=== PATIENT | female | born 1975 | race African-American/Black ===

== ENCOUNTER 2021-05-16 10:01 | Observation (INO) | payer OTHER ==
[~2021-05-16] VITALS: Ht 165.1 cm; Wt 155.1 kg
[2021-05-16] MEDS ORDERED: AMLODIPINE BESY10 MG PO (10:24)
[2021-05-16] MEDS ORDERED: TRIAMTERENE-HCTZ1 EA PO (10:24)
[2021-05-16] MEDS ORDERED: LOTREL 5-20 MG1 EACH (10:36)
[2021-05-16] MEDS ORDERED: CLONIDINE HCL 0.1 MG TAB PO ONE (11:00)
[2021-05-16] MEDS ORDERED: CLONIDINE HCL 0.1 MG TAB ONE (11:08)
[2021-05-16] MEDS ORDERED: SODIUM CHLORIDE 0.9% 1000ML 1,000 ML IV SCH (11:30)
[2021-05-16] MEDS ORDERED: SODIUM CHLORIDE 0.9% 1000ML 1,000 ML ONE (11:34)
[2021-05-16] MEDS ORDERED: SODIUM CHLORIDE 0.9% 50ML 50 ML ONE (11:40)
[2021-05-16] MEDS ORDERED: IOPAMIDOL 370 MG/ML 200 ML INFUS..BTL INJ ONE (11:40)
[2021-05-16] MEDS ORDERED: BENAZEPRIL HCL40 MG PO (14:27)
[2021-05-16] MEDS ORDERED: PROMETHAZINE HCL (IM) 25 MG/ML VIAL IM PRN (15:45)
[2021-05-16] MEDS ORDERED: ONDANSETRON HCL INJ 2MG/ML 2ML 2 MG/ML VIAL IV PRN (15:45)
[2021-05-16] MEDS ORDERED: SODIUM CHLORIDE FLUSH 10 ML SYR INJ PRN (15:45)
[2021-05-16] MEDS ORDERED: HYDRALAZINE HCL 20 MG/ML VIAL IV PRN (15:45)
[2021-05-16] MEDS ORDERED: ASPIRIN 81 MG CHEW TAB PO ONE (15:45)
[2021-05-16] MEDS ORDERED: NITROGLYCERIN 0.4 MG SUBL SL PRN (15:45)
[2021-05-16] MEDS ORDERED: PROMETHAZINE 12.5MG/ NACL 0.9% 50 ML IV PRN (16:15)
[2021-05-16 17:34] VITALS: BP 179/102
[2021-05-16 17:39] VITALS: BP 179/102
[2021-05-16] MEDS ORDERED: CLONIDINE HCL 0.1 MG TAB PO PRN (17:45)
[2021-05-16 18:34] VITALS: BP 179/102
[2021-05-16 18:34] LABS: CREATINE KINASE MB 5.2 ng/mL (0-5.0)
[2021-05-16 19:28] VITALS: BP 156/89
[2021-05-16 20:00] VITALS: BP 156/89
[2021-05-17] VITALS (8 sets, daily range): BP systolic 139–160; BP diastolic 79–98
[2021-05-17] MEDS: ACETAMINOPHEN 325 MG TAB PO PRN ×2 (05:03→11:13)
[2021-05-17 05:46] LABS: BASOPHILS % 0.7 % (0.0-1.0); EOSINOPHILS # (AUTO) 0.4 (0.0-0.4); HEMATOCRIT 45.2 % (34.2-44.1); LYMPHOCYTES # (AUTO) 1.4 (1.0-3.2); LYMPHOCYTES % 23.8 % (18.0-39.1); MEAN CORPUSCULAR HEMOGLOBIN 27.2 pg (28-32); MEAN CORPUSCULAR VOLUME 87.8 fL (81-99); MONOCYTES # (AUTO) 0.7 (0.2-0.8); MONOCYTES % 11.1 % (4.4-11.3); NEUTROPHILS # (AUTO) 3.5 (2.1-6.9); NEUTROPHILS % 58.1 % (38.7-80.0); PLATELET COUNT 260 x10e3/uL (140-360); RED BLOOD COUNT 5.15 x10e6/uL (3.6-5.1)
[2021-05-17 06:13] LABS: ANION GAP 11.9 mmol/L (8-16); CALCIUM 9.5 mg/dL (8.4-10.2); CHOL/HDL RATIO 4.9 (3.0-3.6); CREATININE, SERUM 1.57 mg/dL (0.57-1.11); POTASSIUM 3.9 mmol/L (3.5-5.1)
[2021-05-17 06:57] LABS: CREATINE KINASE MB 2.7 ng/mL (0-5.0)
[2021-05-17] MEDS: AMLODIPINE BESYLATE 5 MG TAB PO SCH (09:09)
[2021-05-17] MEDS: CLONIDINE HCL 0.1 MG TAB PO SCH ×2 (11:14→21:02)
[2021-05-17] MEDS: HYDRALAZINE HCL 25 MG TAB PO SCH ×2 (11:14→17:06)
[2021-05-17 15:02] LABS: CREATINE KINASE MB 2.6 ng/mL (0-5.0)
[2021-05-17] MEDS ORDERED: ATORVASTATIN 20 MG TAB PO SCH (21:00)
[2021-05-18 00:45] VITALS: BP 116/98
[2021-05-18 02:25] LABS: COLOR,URINE YELLOW (YELLOW); LEUKOCYTE ESTERASE ,URINE NEGATIVE (NEGATIVE); NITRITE,URINE NEGATIVE (NEGATIVE)
[2021-05-18 02:26] LABS: KETONES,URINE NEGATIVE (NEGATIVE); PROTEIN,URINE DIPSTICK >=300 (NEGATIVE); URINE UROBILINOGEN 0.2 mg/dL (0.2 - 1)
[2021-05-18 02:33] LABS: WBC,URINE (MAN) >50 /HPF (0-5)
[2021-05-18 02:34] LABS: BACTERIA,URINE FEW /HPF; CLARITY,URINE SL CLOUDY (CLEAR); EPITHELIAL CELLS,URINE MANY /LPF
[2021-05-18 02:38] LABS: TRANSITIONAL EPI CELLS,URINE FEW; TRICHOMONAS,URINE MANY
[2021-05-18 05:24] VITALS: BP 149/85
[2021-05-18 06:06] LABS: BASOPHILS % 0.5 % (0.0-1.0); EOSINOPHILS # (AUTO) 0.3 (0.0-0.4); EOSINOPHILS % 5.4 % (0.0-6.0); HEMATOCRIT 44.6 % (34.2-44.1); HEMOGLOBIN 14.1 g/dL (12.0-16.0); LYMPHOCYTES # (AUTO) 1.3 (1.0-3.2); LYMPHOCYTES % 22.4 % (18.0-39.1); MEAN CORPUSCULAR HEMOGLOBIN 27.5 pg (28-32); MEAN CORPUSCULAR HGB CONC 31.6 g/dL (31-35); MEAN CORPUSCULAR VOLUME 86.9 fL (81-99); MONOCYTES # (AUTO) 0.7 (0.2-0.8); MONOCYTES % 12.1 % (4.4-11.3); NEUTROPHILS # (AUTO) 3.5 (2.1-6.9); NEUTROPHILS % 58.6 % (38.7-80.0); PLATELET COUNT 250 x10e3/uL (140-360); RED BLOOD COUNT 5.13 x10e6/uL (3.6-5.1); RED CELL DISTRIBUTION WIDTH 16.8 % (11.7-14.4)
[2021-05-18 06:38] LABS: ALBUMIN 2.5 g/dL (3.5-5.0); ALBUMIN/GLOBULIN RATIO 0.6 (0.8-2.0); ANION GAP 11.7 mmol/L (8-16); CALCIUM 9.4 mg/dL (8.4-10.2); CREATININE, SERUM 1.5 mg/dL (0.57-1.11); POTASSIUM 3.7 mmol/L (3.5-5.1)
[2021-05-18 07:06] LABS: THYROID STIMULATING HORMONE 1.313 uIU/mL (0.350-4.940)
[2021-05-18 08:00] VITALS: BP 149/85
[2021-05-18 08:54] VITALS: BP 134/90
[2021-05-18] MEDS: HYDRALAZINE HCL 25 MG TAB PO SCH ×2 (09:24→17:02)
[2021-05-18] MEDS: CLONIDINE HCL 0.1 MG TAB PO SCH (09:24)
[2021-05-18] MEDS: AMLODIPINE BESYLATE 5 MG TAB PO SCH (09:25)
[2021-05-18 12:15] VITALS: BP 128/88
[2021-05-18] MEDS ORDERED: ONDANSETRON HCL 4 MG ORAL DISINTEGRATING TAB PO PRN (13:30)
[2021-05-18] MEDS ORDERED: LIPITOR20 MG PO (13:42)
[2021-05-18] MEDS ORDERED: HYDRALAZINE HCL25 MG PO (13:42)
[2021-05-18] MEDS ORDERED: CLONIDINE HCL0.1 MG PO (13:42)
[2021-05-18] MEDS ORDERED: NORVASC5 MG PO (13:42)
== END 2021-05-18 17:30 | disposition home or self-care (01) ==
LOC: FSED 10:32 → ERHOLD 15:43 → MED/SURG2 17:30
PROVIDERS: ADMIT Internal Medicine; ATTEND Internal Medicine
DX: I16.0 Hypertensive urgency (principal); I13.0 Hypertensive heart and chronic kidney disease with heart failure and stage 1 through stage 4 chronic kidney disease, or unspecified chronic kidney disease; I50.33 Acute on chronic diastolic (congestive) heart failure; R42 Dizziness and giddiness; G47.30 Sleep apnea, unspecified; N18.31 Chronic kidney disease, stage 3a; E66.01 Morbid (severe) obesity due to excess calories; R73.03 Prediabetes; Z68.43 Body mass index [BMI] 50.0-59.9, adult; R51.9 Headache, unspecified; E78.00 Pure hypercholesterolemia, unspecified; N17.9 Acute kidney failure, unspecified; M19.90 Unspecified osteoarthritis, unspecified site; F17.210 Nicotine dependence, cigarettes, uncomplicated; M47.26 Other spondylosis with radiculopathy, lumbar region; Z20.822 Contact with and (suspected) exposure to COVID-19
CPT/HCPCS: 36415 ×3; 70450; 71260; 80048; 80053 ×2; 80061; 81001; 81003; 82550 ×2; 82553 ×2; 83880; 84443; 84484 ×2; 85025 ×3; 85379; 93005; 93306; 93880; 99284; G0378 ×3; J7030; Q9967; U0002; J0360

== ENCOUNTER 2021-07-20 06:34 | Emergency (ER) | payer OTHER ==
[~2021-07-20] VITALS: Ht 165.1 cm; Wt 153.3 kg
[~2021-07-20 06:34] MED LIST: AMLODIPINE BESY10 MG PO; BENAZEPRIL HCL40 MG PO; CLONIDINE HCL0.1 MG PO; HYDRALAZINE HCL25 MG PO; LIPITOR20 MG PO; LOTREL 5-20 MG1 EACH; NORVASC5 MG PO; TRIAMTERENE-HCTZ1 EA PO
[2021-07-20] MEDS ORDERED: METHYLPREDNISOLONE SOD SUCC 125 MG/2ML VIAL IV ONE (06:45)
[2021-07-20] MEDS ORDERED: ALBUTEROL/IPRATROPIUM 3 ML NEB NEB ONE (06:45)
[2021-07-20 06:55] LABS: BASOPHILS # (AUTO) 0.1 (0.0-0.1); BASOPHILS % 0.7 % (0.0-1.0); EOSINOPHILS # (AUTO) 0.7 (0.0-0.4); EOSINOPHILS % 9.1 % (0.0-6.0); HEMATOCRIT 45.4 % (34.2-44.1); HEMOGLOBIN 14.1 g/dL (12.0-16.0); LYMPHOCYTES # (AUTO) 1.3 (1.0-3.2); LYMPHOCYTES % 17.6 % (18.0-39.1); MEAN CORPUSCULAR HEMOGLOBIN 26.8 pg (28-32); MEAN CORPUSCULAR HGB CONC 31.1 g/dL (31-35); MEAN CORPUSCULAR VOLUME 86.3 fL (81-99); MONOCYTES # (AUTO) 0.7 (0.2-0.8); MONOCYTES % 9.9 % (4.4-11.3); NEUTROPHILS # (AUTO) 4.5 (2.1-6.9); NEUTROPHILS % 62.3 % (38.7-80.0); PLATELET COUNT 287 x10e3/uL (140-360); RED BLOOD COUNT 5.26 x10e6/uL (3.6-5.1)
[2021-07-20 07:09] LABS: INR 0.9
[2021-07-20 07:10] LABS: PARTIAL THROMBOPLASTIN TIME 29.8 seconds (23.8-35.5)
[2021-07-20 07:17] LABS: ALBUMIN 2.9 g/dL (3.5-5.0); ALBUMIN/GLOBULIN RATIO 0.6 (0.8-2.0); ANION GAP 13.4 mmol/L (8-16); CALCIUM 8.7 mg/dL (8.4-10.2); CREATININE, SERUM 1.59 mg/dL (0.57-1.11); POTASSIUM 3.4 mmol/L (3.5-5.1)
[2021-07-20 07:23] LABS: CREATINE KINASE MB 6.6 ng/mL (0-5.0)
[2021-07-20 07:49] LABS: FREE T4 (FREE THYROXINE) 0.89 ng/dL (0.8-1.8); THYROID STIMULATING HORMONE 4.04 uIU/mL (0.350-4.940)
[2021-07-20 08:00] LABS: ABG HCO3 31 mmol/L (22-26); ABG PCO2 57 mmHg (35-45); ABG PH 7.35 (7.35-7.45); ABG PO2 82 mmHg (80-105); ABG TCO2 33
[2021-07-20] MEDS ORDERED: VENTOLIN HFA18 GM INH (08:32)
[2021-07-20] MEDS ORDERED: DOXYCYCLINE HY100 MG PO (08:32)
[2021-07-20] MEDS ORDERED: BENZONATATE100 MG PO (08:32)
[2021-07-20] MEDS ORDERED: PREDNISONE50 MG PO (08:32)
[2021-07-20 09:01] VITALS: BP 154/71
== END 2021-07-20 09:00 | disposition home or self-care (01) ==
LOC: ER 07:19
DX: R06.00 Dyspnea, unspecified (principal); G47.30 Sleep apnea, unspecified; I10 Essential (primary) hypertension; R73.03 Prediabetes; E66.9 Obesity, unspecified
CPT/HCPCS: 36415; 36600; 71045; 80053; 82550; 82553; 82805; 83880; 84439; 84443; 84484; 85025; 85610; 85730; 93005; 99284; J2930; U0002

== ENCOUNTER 2021-11-25 00:31 | Emergency (ER) | payer OTHER ==
[~2021-11-25] VITALS: Ht 165.1 cm; Wt 153.3 kg
[~2021-11-25 00:31] MED LIST changes: +BENZONATATE100 MG PO; +DOXYCYCLINE HY100 MG PO; +PREDNISONE50 MG PO; +VENTOLIN HFA18 GM INH
[2021-11-25] MEDS ORDERED: LIDOCAINE HCL 1% LOCAL INJ 20 ML VIAL INJ STA (00:39)
[2021-11-25] MEDS ORDERED: CEPHALEXIN500 MG PO ×2 (00:52→00:53)
[2021-11-25] MEDS ORDERED: LIDOCAINE HCL 1% LOCAL INJ 20 ML VIAL ONE (00:53)
== END 2021-11-25 01:02 | disposition home or self-care (01) ==
LOC: ER 00:40
DX: S01.511A Laceration without foreign body of lip, initial encounter (principal); W01.0XXA Fall on same level from slipping, tripping and stumbling without subsequent striking against object, initial encounter; Y93.01 Activity, walking, marching and hiking; Y92.480 Sidewalk as the place of occurrence of the external cause; I10 Essential (primary) hypertension; R73.03 Prediabetes; E66.9 Obesity, unspecified
CPT/HCPCS: 99283; J2001

== ENCOUNTER 2023-03-02 22:38 | Emergency (ER) | payer OTHER ==
[~2023-03-02] VITALS: Ht 165.1 cm; Wt 83.0 kg
[~2023-03-02 22:38] MED LIST changes: +CEPHALEXIN500 MG PO
[2023-03-02 22:43] VITALS: O2SAT 98
[2023-03-02] MEDS ORDERED: PYRIDIUM200 MG PO (23:00)
[2023-03-02] MEDS ORDERED: CEFDINIR300 MG PO (23:00)
== END 2023-03-02 23:06 | disposition home or self-care (01) ==
LOC: FSED 22:42
DX: R30.0 Dysuria (principal); N39.0 Urinary tract infection, site not specified; I10 Essential (primary) hypertension; N28.9 Disorder of kidney and ureter, unspecified; E66.9 Obesity, unspecified; Z98.84 Bariatric surgery status; F17.210 Nicotine dependence, cigarettes, uncomplicated
CPT/HCPCS: 81003; 87086; 87186; 99283